=== PATIENT | male | born 1975 | race African-American/Black ===

== ENCOUNTER 2016-07-18 04:14 | Emergency (ER) | payer MEDICAID ==
[~2016-07-18] VITALS: Ht 175.3 cm; Wt 74.4 kg
[2016-07-18 04:16] VITALS: BP 152/102
== END 2016-07-18 06:11 | disposition home or self-care (01) ==
LOC: ED 05:50
DX: L50.9 Urticaria, unspecified (principal)
CPT/HCPCS: 99283

== ENCOUNTER 2016-10-20 19:18 | Emergency (ER) | payer MEDICAID ==
[~2016-10-20] VITALS: Ht 170.2 cm; Wt 70.0 kg
[2016-10-20] MEDS ORDERED: PLEASE ENTER HEIGHT AND WEIGHT MC SCH (19:30)
[2016-10-20] MEDS ORDERED: LORazepam 1MG TABLET PO ONE (19:30)
[2016-10-20 19:32] VITALS: BP 145/75
== END 2016-10-20 19:41 | disposition home or self-care (01) ==
LOC: ED 19:35
DX: F41.1 Generalized anxiety disorder (principal); R41.3 Other amnesia
CPT/HCPCS: 99283; 99284

== ENCOUNTER 2016-11-09 18:56 | Emergency (ER) | payer MEDICAID ==
[~2016-11-09] VITALS: Ht 175.3 cm; Wt 70.4 kg
[2016-11-09 19:12] VITALS: BP 143/95
== END 2016-11-09 19:41 | disposition home or self-care (01) ==
LOC: ED 19:00
DX: K08.89 Other specified disorders of teeth and supporting structures (principal); Z91.010 Allergy to peanuts; Z91.018 Allergy to other foods
CPT/HCPCS: 99283

== ENCOUNTER 2016-11-15 20:18 | Emergency (ER) | payer MEDICAID ==
[~2016-11-15] VITALS: Ht 175.3 cm; Wt 67.7 kg
[2016-11-15 20:19] VITALS: BP 146/100
[2016-11-15] MEDS ORDERED: CEFTRIAXONE 250 MG IM ONE (20:30)
[2016-11-15] MEDS ORDERED: AZITHROMYCIN 500 MG TABLET PO ONE (20:30)
[2016-11-15] MEDS ORDERED: AZITHROMYCIN 500 MG TABLET ONE (20:39)
[2016-11-15] MEDS ORDERED: CEFTRIAXONE 250 MG ONE (20:39)
[2016-11-15] MEDS ORDERED: LIDOCAINE 1%, 20ML ONE (20:39)
== END 2016-11-15 21:43 | disposition home or self-care (01) ==
LOC: ED 20:49
DX: N34.1 Nonspecific urethritis (principal); Z20.2 Contact with and (suspected) exposure to infections with a predominantly sexual mode of transmission
CPT/HCPCS: 81001; 87086; 87491; 87591; 96372; 99284; J0696

== ENCOUNTER 2017-01-03 22:38 | Emergency (ER) | payer MEDICAID ==
[~2017-01-03] VITALS: Ht 175.3 cm; Wt 69.1 kg
[2017-01-03 22:39] VITALS: BP 166/118
[2017-01-03] MEDS ORDERED: FAMOTIDINE 20 MG TABLET PO ONE (23:00)
[2017-01-03] MEDS ORDERED: FAMOTIDINE 20 MG TABLET ONE (23:04)
== END 2017-01-03 23:18 | disposition home or self-care (01) ==
LOC: ED 23:11
DX: T14.8 Other injury of unspecified body region (principal); L08.9 Local infection of the skin and subcutaneous tissue, unspecified; W57.XXXA Bitten or stung by nonvenomous insect and other nonvenomous arthropods, initial encounter; Y93.89 Activity, other specified; Y92.89 Other specified places as the place of occurrence of the external cause; Y99.8 Other external cause status
CPT/HCPCS: 99284; J7512; Q0177

== ENCOUNTER 2017-01-15 22:00 | Emergency (ER) | payer MEDICAID ==
[~2017-01-15] VITALS: Ht 175.3 cm; Wt 69.7 kg
[2017-01-15] MEDS ORDERED: ONDANSETRON 2MG/ML, 2ML IVPush ONE (22:30)
[2017-01-15] MEDS ORDERED: MORPHINE SULFATE 4 MG/ML, 1ML IVPush PRN (22:30)
[2017-01-15] MEDS ORDERED: ACETAMINOPHEN 325 MG TABLET PO ONE (22:30)
[2017-01-15] MEDS ORDERED: SODIUM CHLORIDE FLUSH 10ML SYR IVF ONE (22:30)
[2017-01-15] MEDS ORDERED: SODIUM CHLORIDE 0.9% 1,000ML IVBOLUS ONE (22:30)
[2017-01-15] MEDS ORDERED: ONDANSETRON 2MG/ML, 2ML ONE (22:36)
[2017-01-15] MEDS ORDERED: MORPHINE SULFATE 4 MG/ML, 1ML ONE (22:36)
[2017-01-15] MEDS ORDERED: ACETAMINOPHEN 325 MG TABLET ONE ×2 (22:36→23:01)
[2017-01-15 23:14] LABS: ASPARTATE AMINO TRANSFERASE 45 U/L (15-37); BLOOD UREA NITROGEN 13 mg/dL (7-18)
[2017-01-15 23:20] LABS: HEMATOCRIT 47.4 % (39.2-51.8); HEMOGLOBIN 16.1 g/dL (13.7-18.0); WHITE BLOOD COUNT 4.7 x10^3/uL (3.4-10)
[2017-01-15 23:46] VITALS: BP 146/102
[2017-01-15] MEDS ORDERED: IBUPROFEN 200 MG TABLET ONE (23:52)
[2017-01-16] MEDS ORDERED: IBUPROFEN 200 MG TABLET PO ONE
== END 2017-01-16 01:37 | disposition left against medical advice (07) ==
LOC: ED 23:16
DX: R50.9 Fever, unspecified (principal); R00.0 Tachycardia, unspecified; F15.10 Other stimulant abuse, uncomplicated; F17.200 Nicotine dependence, unspecified, uncomplicated; F41.9 Anxiety disorder, unspecified
CPT/HCPCS: 36415; 71010; 80053; 81001; 83605; 84145; 85025; 87040; 99285

== ENCOUNTER 2017-03-17 21:01 | Emergency (ER) | payer MEDICAID ==
[~2017-03-17] VITALS: Ht 175.3 cm; Wt 74.0 kg
[2017-03-17 21:03] VITALS: BP 136/79
[2017-03-17] MEDS ORDERED: AZITHROMYCIN 500 MG TABLET PO ONE (21:30)
[2017-03-17] MEDS ORDERED: CEFTRIAXONE 250 MG IM ONE (21:30)
[2017-03-17] MEDS ORDERED: CEFTRIAXONE 250 MG ONE (21:33)
[2017-03-17] MEDS ORDERED: AZITHROMYCIN 250 MG TABLET ONE (21:33)
== END 2017-03-17 22:05 | disposition home or self-care (01) ==
LOC: ED 21:36
DX: S00.06XA Insect bite (nonvenomous) of scalp, initial encounter (principal); S10.96XA Insect bite of unspecified part of neck, initial encounter; F17.200 Nicotine dependence, unspecified, uncomplicated; W57.XXXA Bitten or stung by nonvenomous insect and other nonvenomous arthropods, initial encounter; Y93.89 Activity, other specified; Y92.89 Other specified places as the place of occurrence of the external cause; Y99.8 Other external cause status
CPT/HCPCS: 96372; 99283; J0696

== ENCOUNTER 2017-03-19 01:07 | Emergency (ER) | payer MEDICAID ==
[~2017-03-19] VITALS: Ht 175.3 cm; Wt 72.8 kg
[2017-03-19 01:08] VITALS: BP 162/93
== END 2017-03-19 01:25 | disposition home or self-care (01) ==
LOC: ED 01:22
DX: T63.301A Toxic effect of unspecified spider venom, accidental (unintentional), initial encounter (principal); Z72.9 Problem related to lifestyle, unspecified; F17.200 Nicotine dependence, unspecified, uncomplicated; Y92.099 Unspecified place in other non-institutional residence as the place of occurrence of the external cause
CPT/HCPCS: 99281

== ENCOUNTER 2019-08-03 20:26 | Emergency (ER) | payer SELFPAY ==
[~2019-08-03] VITALS: Ht 175.3 cm; Wt 76.0 kg
[2019-08-03 20:31] VITALS: BP 140/107
[2019-08-03 21:48] LABS: ANION GAP 6 mmol/L (5-15); CALCIUM 9.6 mg/dL (8.5-10.1); CHLORIDE 103 mmol/L (98-107); CREATININE 1.06 mg/dL (0.7-1.3)
--- NOTE | 2019-08-03 22:02 | NUR ---
PT REFUSING TO LEAVE AT THIS TIME. MD WAS IN ROOM MULTIPLE TIMES, MD AWARE OF SITUATION. PT IS TO BE DISCHARGED. SECURITY IS CALLED TO ASSIST.
--- NOTE | 2019-08-03 22:19 | NUR ---
Received report from Juan WALTER. Pt had received d/c instructions at that time and was not compliant with leaving. Security was called buy outgoing RN to escort pt out. Security arrived and pt continued to refuse to leave. [employer] was called by security. [employer] responded and pt continued to refuse to leave. Pt stated "you're gonna have to arrest me". Pt was taken into custody.
== END 2019-08-03 22:11 | disposition home or self-care (01) ==
LOC: ED 21:44
DX: R06.00 Dyspnea, unspecified (principal); R05 Cough; M79.89 Other specified soft tissue disorders; G89.29 Other chronic pain; F17.200 Nicotine dependence, unspecified, uncomplicated
CPT/HCPCS: 36415; 71045; 80048; 82040; 99284

== ENCOUNTER 2020-05-26 11:12 | Emergency (ER) | payer MEDICAID ==
[~2020-05-26] VITALS: Ht 175.3 cm; Wt 72.0 kg
--- NOTE | 2020-05-26 11:49 | NUR ---
TASK RN: PT HERE WITH C/O PRODUCTIVE COUGH X10 DAYS, DENIES SOB OR CP, RA SAT 97%.
[2020-05-26 12:23] LABS: BASOPHILS % (AUTO) 1 % (0-1); EOSINOPHILS % (AUTO) 0 % (1-7); LYMPHOCYTES % (AUTO) 24 % (22-44); MEAN CORPUSCULAR HEMOGLOBIN 30.5 pg (27.5-34.5); MEAN CORPUSCULAR HGB CONC 34.8 g/dL (33.2-36.2); MEAN PLATELET VOLUME 7.9 fL (7.4-10.4); MONOCYTES % (AUTO) 12 % (2-9); NEUTROPHILS % (AUTO) 62 % (42-75); PLATELET COUNT 262 x10^3/uL (130-400); RED BLOOD COUNT 5.19 x10^6/uL (4.38-5.82); RED CELL DISTRIBUTION WIDTH 12.5 % (9.4-14.8)
[2020-05-26 12:25] LABS: MD NO
[2020-05-26 12:33] LABS: ALBUMIN 4.2 g/dL (3.4-5.0); ANION GAP 5 mmol/L (5-15); CALCIUM 9.7 mg/dL (8.5-10.1); CHLORIDE 105 mmol/L (98-107); CREATININE 1.04 mg/dL (0.7-1.3)
[2020-05-26 12:55] VITALS: BP 180/108
--- NOTE | 2020-05-26 13:03 | NUR ---
MD Norwood made aware of d/c vitals. No new orders. Pt with rx for lisinopril, educated about HTN and need for med and allergic rx/ side effects and about returning to ER if he feels it's necessary.
== END 2020-05-26 13:06 | disposition home or self-care (01) ==
LOC: ED 12:23
DX: J20.8 Acute bronchitis due to other specified organisms (principal); I11.9 Hypertensive heart disease without heart failure; F17.290 Nicotine dependence, other tobacco product, uncomplicated
CPT/HCPCS: 36415; 71045; 80048; 82040; 85025; 93005; 99285